=== PATIENT | male | born 1950 | race Two or more races ===

== ENCOUNTER 2024-03-12 13:58 | Outpatient (REF) | payer MEDICARE, SELFPAY ==
--- NOTE | ~2024-03-12 | CT_ITS ---
STUDY PERFORMED: CTA ABDOMEN, PELVIS AND LOWER EXTREMITY RUNOFF WITH CONTRAST HISTORY: PAIN BILAT LEGS, PAD DESCRIPTION: Routine abdominal aorta and lower extremity runoff CTA protocol with contrast was performed. 100 mL of Omnipaque was administered. 3D POSTPROCESSING: Multiple 3-D angiographic images were processed from the initial data set by the [facility] under concurrent physician supervision. DOSE LOWERING TECHNIQUES: This CT examination was performed using dose optimization techniques as appropriate, variously including the following: - Automated exposure control - Adjustment of mA and/or kV according to patient size (this includes techniques or standardized protocols for targeted exams where dose is matched to indication/reason for exam; i.e. extremities or head) - Use of iterative reconstruction technique DLP: 660 mGycm. COMPARISON: None FINDINGS: VASCULAR: ABDOMINAL AORTA: patent and normal in caliber RIGHT LOWER EXTREMITY: - Common Iliac Artery: patent - Internal Iliac Artery: patent - External Iliac Artery: patent - Common Femoral Artery: patent - Profunda Femoral Artery: patent - Superficial Femoral Artery: Patent with atherosclerotic plaque causing at most mild narrowing. - Popliteal Artery: Patent with atherosclerotic plaque causing at most mild narrowing. - Anterior Tibial Artery: Heavily calcified, but appears patent -Tibioperoneal trunk: patent - Posterior Tibial Artery: Heavily calcified with multifocal high-grade stenoses versus occlusions - Peroneal Artery: patent LEFT LOWER EXTREMITY: - Common Iliac Artery: patent - Internal Iliac Artery: patent - External Iliac Artery: patent - Common Femoral Artery: patent - Profunda Femoral Artery: patent - Superficial Femoral Artery: Patent with atherosclerotic plaque causing at most mild narrowing. - Popliteal Artery: Patent with atherosclerotic plaque causing at most mild narrowing. 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 Distal reconstitution, but heavily calcified. - Peroneal Artery: patent CELIOMESENTERIC ARTERIES: The celiac artery and SMA are patent. The KUN is occluded at its origin, but reconstituted. RENAL ARTERIES: patent single bilateral renal arteries NONVASCULAR: Lung Bases: The visualized lung bases are unremarkable. Liver and Biliary Tree: The liver is normal in size, shape, and attenuation. No focal hepatic lesion or biliary ductal dilatation is present. Gallbladder: The gallbladder is filled with high density sludge Pancreas: Unremarkable. Spleen: Unremarkable. Adrenal Glands: Unremarkable. Kidneys and Ureters: The kidneys are normal in size. Decreased relative perfusion of the right kidney relative to the left. No hydronephrosis. Circumaortic left renal vein. Bladder: Unremarkable. Gastrointestinal Tract: Large stool burden. The stomach and duodenum appear normal. Abdominal Wall: No significant hernia is appreciated. Lymph Nodes: Normal. Pelvic Viscera: Unremarkable. Osseous Structures: Status post left hip arthroplasty. Multilevel degenerative changes of the lumbar spine. CT/CT angio abd aorta runoff IMPRESSION: Vascular: Right lower extremity: Inflow: Patent Femoral-popliteal: Patient with plaques causing at most mild stenoses Runoff: The peroneal artery is patent. The anterior tibial artery is heavily calcified but patent. The posterior tibial artery. Left lower extremity: Inflow: Patent Femoral-popliteal: Patient with plaques causing at most mild stenoses Runoff: The posterior tibial artery is occluded from the proximal to mid segment. The anterior tibial artery and peroneal artery are patent. The KUN is occluded at its origin. Electronically signed by: Dar Curtis MD 03/14/2024 09:30 AM EDT
[2024-03-12] MEDS: iohexoL 350 MG/ML 100 ML INFUS..BTL IV (15:06)
[2024-03-14 09:43] LABS: Creatinine POC 0.8 mg/dL (0.5-1.4); GFR POC > 60
== END 2024-03-12 13:59 | disposition home or self-care (01) ==
LOC: HO.CT 13:58
PROVIDERS: PCP Internal Medicine Rheumatology; Visit Provider Surgery
DX: M79.604 Pain in right leg (principal); M79.605 Pain in left leg
CPT/HCPCS: 75635; 82565; Q9967